=== PATIENT | female | born 1995 | race Caucasian/White ===

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

== ENCOUNTER 2020-05-04 22:39 | Inpatient (IN) | payer OTHER ==
[~2020-05-04 22:39] MED LIST: COLACE 100MG C100 MG PO; IBUPROFEN600 MG PO; LORTAB 5-325 M1 EACH PO
[2020-05-05 00:04] LABS: HEMOGLOBIN 10.4 gm/dl (12.3-15.3); RED BLOOD COUNT 4.06 M/UL (4.00-5.10)
[2020-05-05] MEDS ORDERED: METHIMAZOLE5 MG PO (06:23)
[2020-05-06 06:46] LABS: HEMOGLOBIN 7.3 gm/dl (12.3-15.3)
[2020-05-06] MEDS ORDERED: TAPAZOLE 10 MG10 MG PO (09:17)
[2020-05-06] MEDS ORDERED: LORTAB 5-325 M1 EACH PO (09:17)
[2020-05-06] MEDS ORDERED: IBUPROFEN600 MG PO ×2 (09:17→11:24)
[2020-05-06] MEDS ORDERED: DOCUSATE SODIU100 MG PO ×2 (09:17→11:24)
== END 2020-05-06 12:23 | disposition home or self-care (01) | DRG 787 ==
LOC: GENOP 22:39 → OB 05-05 02:12
PROVIDERS: ADMIT Obstetrics & Gynecology
PROC: 10907ZC Drainage of Amniotic Fluid, Therapeutic from Products of Conception, Via Natural or Artificial Opening (ICD-10-PCS; 2020-05-05)
PROC: 3E02340 Introduction of Influenza Vaccine into Muscle, Percutaneous Approach (ICD-10-PCS; 2020-05-05)
PROC: 3E0234Z Introduction of Serum, Toxoid and Vaccine into Muscle, Percutaneous Approach (ICD-10-PCS; 2020-05-05)
PROC: 10D00Z1 Extraction of Products of Conception, Low, Open Approach (ICD-10-PCS; principal; 2020-05-05 04:22)
PROC: 3E0334Z Introduction of Serum, Toxoid and Vaccine into Peripheral Vein, Percutaneous Approach (ICD-10-PCS; 2020-05-06)
DX: O32.2XX0 Maternal care for transverse and oblique lie, not applicable or unspecified (principal); O36.0930 Maternal care for other rhesus isoimmunization, third trimester, not applicable or unspecified; O98.32 Other infections with a predominantly sexual mode of transmission complicating childbirth; Z3A.37 37 weeks gestation of pregnancy; Z37.0 Single live birth; Z20.828 Contact with and (suspected) exposure to other viral communicable diseases; O99.284 Endocrine, nutritional and metabolic diseases complicating childbirth; O99.824 Streptococcus B carrier state complicating childbirth; A56.8 Sexually transmitted chlamydial infection of other sites; E05.00 Thyrotoxicosis with diffuse goiter without thyrotoxic crisis or storm; Z82.49 Family history of ischemic heart disease and other diseases of the circulatory system; Z23 Encounter for immunization
CPT/HCPCS: 81001; 82800; 85014; 85018; 85025; 85461; 86850; 86900; 86901; 90471; 90472; 90686; 90715; C9113; J0595; J0690; J1170; J1580; J1885; J2250; J2270; J2405; J2590; J2704; J2790; J3010; J7120; U0002

== ENCOUNTER 2021-06-18 02:02 | Outpatient (CLI) | payer OTHER ==
[~2021-06-18 02:02] MED LIST changes: +DOCUSATE SODIU100 MG PO; +METHIMAZOLE5 MG PO; +TAPAZOLE 10 MG10 MG PO
== END 2021-06-18 04:14 | disposition home or self-care (01) ==
LOC: GENOP 02:02
DX: O47.03 False labor before 37 completed weeks of gestation, third trimester (principal); O36.8130 Decreased fetal movements, third trimester, not applicable or unspecified; Z88.1 Allergy status to other antibiotic agents; Z88.4 Allergy status to anesthetic agent; Z3A.35 35 weeks gestation of pregnancy
CPT/HCPCS: 81001; G0463

== ENCOUNTER 2021-07-12 23:39 | Inpatient (IN) | payer OTHER ==
[~2021-07-12] VITALS: Ht 160 cm; Wt 63.5 kg
[2021-07-13 00:47] LABS: HEMOGLOBIN 8.8 gm/dl (12.3-15.3); RED BLOOD COUNT 3.96 M/UL (4.00-5.10); WHITE BLOOD COUNT 11.1 K/UL (4.5-11.0)
[2021-07-14 04:02] LABS: HEMOGLOBIN 8.3 gm/dl (12.3-15.3)
[2021-07-14] MEDS ORDERED: DOCUSATE SODIU100 MG PO (12:04)
[2021-07-14] MEDS ORDERED: IBUPROFEN600 MG PO (12:04)
[2021-07-14] MEDS ORDERED: FERROUS SULFAT325 M2 PO (12:04)
[2021-07-14] MEDS ORDERED: HYDROCODONE-AC1 EACH PO (12:04)
== END 2021-07-14 16:27 | disposition home or self-care (01) | DRG 788 ==
LOC: GENOP 23:39 → CDU 07-13 00:19 → OB 07-13 00:19
PROVIDERS: ADMIT Obstetrics & Gynecology
PROC: 4A1HXCZ Monitoring of Products of Conception, Cardiac Rate, External Approach (ICD-10-PCS; 2021-07-12)
PROC: 10D00Z1 Extraction of Products of Conception, Low, Open Approach (ICD-10-PCS; 2021-07-13)
PROC: 3E0234Z Introduction of Serum, Toxoid and Vaccine into Muscle, Percutaneous Approach (ICD-10-PCS; principal; 2021-07-13 00:54)
DX: O34.211 Maternal care for low transverse scar from previous cesarean delivery (principal); Z3A.38 38 weeks gestation of pregnancy; Z37.0 Single live birth; Z20.822 Contact with and (suspected) exposure to COVID-19; Z90.49 Acquired absence of other specified parts of digestive tract; O99.02 Anemia complicating childbirth; D64.9 Anemia, unspecified; Z98.890 Other specified postprocedural states; Z82.49 Family history of ischemic heart disease and other diseases of the circulatory system; Z88.8 Allergy status to other drugs, medicaments and biological substances; Z23 Encounter for immunization
CPT/HCPCS: 36600; 81001; 82800; 85014; 85018; 85025; 85461; 86850; 86900; 86901; 90715; C9113; J1200; J1580; J2210; J2274; J2370; J2405; J2590; J2790; J3010; J7120

== ENCOUNTER → 2022-01-12 | Outpatient (CLI) | payer OTHER ==
[~2022-01-12] MED LIST changes: +FERROUS SULFAT325 M2 PO; +HYDROCODONE-AC1 EACH PO
== END ==
LOC: LAB 15:55 → EDSTATUS 15:59
DX: Z20.822 Contact with and (suspected) exposure to COVID-19 (principal)
CPT/HCPCS: U0002